=== PATIENT | female | born 1985 | race Caucasian/White ===

== ENCOUNTER 2017-06-25 19:56 | Emergency (ER) | payer OTHER ==
[2017-06-25] MEDS ORDERED: METHYLPREDNISOLONE INJ 125 MG/2 ML SDV IM ONE (21:10)
--- NOTE | 2017-06-25 21:12 | ER Document Report ---
ED Skin Rash/Insect Bite/Abscs - General Chief Complaint: Insect Bite Stated Complaint: POSSIBLE SPIDER BITE,SWELLING Time Seen by Provider: 06/25/17 21:04 Mode of Arrival: Ambulatory Information source: Patient Notes: Patient is a 31-year-old female who presents to the ER today for possible insect bite to her right forearm at 2 PM today. Patient states that after the bite she did not see anything but a little while later she saw a small black spider sitting wherever she was. She denies any numbness, tingling except for her "carpal tunnel." She states that there is some redness and that it is tender to touch around the area of the insect bite. She denies any fever, chills, drainage from the area, headache or other symptoms. TRAVEL OUTSIDE OF THE [place] IN LAST 30 DAYS: No - Related Data Allergies/Adverse Reactions: No Known Allergies Allergy (Verified 06/25/17 20:21) Past Medical History - General Information source: Patient - Social History Smoking Status: Unknown if Ever Smoked Family History: Reviewed & Not Pertinent Patient has suicidal ideation: No Patient has homicidal ideation: No - Past Medical History Cardiac Medical History: Denies: Hx Coronary Artery Disease, Hx Heart Attack, Hx Hypertension Pulmonary Medical History: Denies: Hx Asthma, Hx Bronchitis, Hx COPD, Hx Pneumonia Neurological Medical History: Reports: Hx Migraine. Denies: Hx Cerebrovascular Accident, Hx Seizures Renal/ Medical History: Denies: Hx Peritoneal Dialysis Malignancy Medical History: Reports: Hx Cervical Cancer Musculoskeltal Medical History: Denies Hx Arthritis Past Surgical History: Reports: Hx Gastric Bypass Surgery - Lap band, Hx Gynecologic Surgery - leep procedure, Hx Orthopedic Surgery - cyst from left wrist, Hx Tonsillectomy - Immunizations Immunizations up to date: Yes Hx Diphtheria, Pertussis, Tetanus Vaccination: Yes Review of Systems - Review of Systems Constitutional: No symptoms reported EENT: No symptoms reported Cardiovascular: No symptoms reported Respiratory: No symptoms reported Gastrointestinal: No symptoms reported Genitourinary: No symptoms reported Female Genitourinary: No symptoms reported Musculoskeletal: No symptoms reported Skin: See HPI Hematologic/Lymphatic: No symptoms reported Neurological/Psychological: No symptoms reported Physical Exam - Vital signs Vitals: Temp Pulse Resp BP Pulse Ox 98 F 91 18 125/91 H 98 06/25/17 20:22 06/25/17 20:22 06/25/17 20:22 06/25/17 20:22 06/25/17 20:22 - Notes Notes: PHYSICAL EXAMINATION: GENERAL: Well-appearing and in no acute distress. HEAD: Atraumatic, normocephalic. EYES: Pupils equal round and reactive to light, extraocular movements intact, sclera anicteric, conjunctiva are normal. NECK: Normal range of motion, supple without lymphadenopathy LUNGS: CTAB and equal. No wheezes rales or rhonchi. HEART: Regular rate and rhythm without murmurs EXTREMITIES: Normal range of motion, no pitting edema. No cyanosis. NEUROLOGICAL: Cranial nerves grossly intact. Normal sensory/motor exams. PSYCH: Normal mood, normal affect. SKIN: Warm, Dry, normal turgor, small papule to the right volar forearm with mild erythema around, tender to palpation Course - Re-evaluation Re-evalutation: 06/25/17 21:21 Patient given Solu-Medrol injection here and sent home with Keflex for prophylactic treatment. - Vital Signs Vital signs: Temp Pulse Resp BP Pulse Ox 98 F 91 18 125/91 H 98 06/25/17 20:22 06/25/17 20:22 06/25/17 20:22 06/25/17 20:22 06/25/17 20:22 Discharge - Discharge Clinical Impression: Insect bite Qualifiers: Encounter type: initial encounter Qualified Code(s): W57.XXXA - Bitten or stung by nonvenomous insect and other nonvenomous arthropods, initial encounter Condition: Stable Disposition: HOME, SELF-CARE Additional Instructions: Return immediately for any new or worsening symptoms. Follow up with primary care provider, call tomorrow to make followup appointment. Prescriptions: Cephalexin Monohydrate [Keflex 500 mg Capsule] 500 mg PO BID 5 Days capsule
[2017-06-25 21:39] VITALS: BP 104/73
== END 2017-06-25 21:40 | disposition home or self-care (01) ==
LOC: ER 19:56
DX: S50.861A Insect bite (nonvenomous) of right forearm, initial encounter (principal); W57.XXXA Bitten or stung by nonvenomous insect and other nonvenomous arthropods, initial encounter; Z85.41 Personal history of malignant neoplasm of cervix uteri; Z98.84 Bariatric surgery status
CPT/HCPCS: 99281; 96374; J2930

== ENCOUNTER 2017-06-27 10:44 | Day surgery (SDC) | payer OTHER ==
--- NOTE | 2017-06-23 11:11 | RADIOLOGY REPORT (SQ) ---
EXAM DESCRIPTION: CHEST PA/LATERAL COMPLETED DATE/TIME: 06/23/2017 10:55 am REASON FOR STUDY: PRE-OP COMPARISON: 03/21/2013 EXAM PARAMETERS: NUMBER OF VIEWS: two views TECHNIQUE: Digital Frontal and Lateral radiographic views of the chest acquired. RADIATION DOSE: NA LIMITATIONS: none FINDINGS: LUNGS AND PLEURA: No opacities, masses or pneumothorax. No pleural effusion. MEDIASTINUM AND HILAR STRUCTURES: No masses or contour abnormalities. HEART AND VASCULAR STRUCTURES: Heart normal size. No evidence for failure. BONES: No acute findings. HARDWARE: None in the chest. OTHER: No other significant finding. IMPRESSION: NO SIGNIFICANT RADIOGRAPHIC FINDING IN THE CHEST. TECHNICAL DOCUMENTATION: JOB ID: [id number] [employer]- All Rights Reserved
[2017-06-23 11:20] LABS: ABSOLUTE EOSINOPHILS # (AUTO) 0.2 10^3/uL (0.0-0.6); ABSOLUTE LYMPHOCYTES (AUTO) 3.1 10^3/uL (0.5-4.7); ABSOLUTE MONOCYTES (AUTO) 0.6 10^3/uL (0.1-1.4); ABSOLUTE NEUT (AUTO) 2.7 10^3/uL (1.7-8.2); BASOPHILS % (AUTO) 0.3 % (0-2); EOSINOPHILS % (AUTO) 3.6 % (0-6); HEMATOCRIT 43.4 % (36.0-47.0); HEMOGLOBIN 14.1 g/dL (12.0-15.5); HGB HCT DIFFERENCE -1.1; LYMPHOCYTES % (AUTO) 46.7 % (13-45); MEAN CORPUSCULAR HEMOGLOBIN 29.3 pg (27.0-33.4); MEAN CORPUSCULAR HGB CONC 32.4 g/dL (32.0-36.0); MEAN CORPUSCULAR VOLUME 90 fl (80-97); MONOCYTES % (AUTO) 9.6 % (3-13); RED CELL DISTRIBUTION WIDTH 14.4 % (11.5-14.0); SEGMENTED NEUTROPHILS % (AUTO) 39.8 % (42-78); WHITE BLOOD COUNT 6.7 10^3/uL (4.0-10.5)
[2017-06-23 11:39] LABS: AMORPHOUS SEDIMENT,URINE TRACE /HPF; APPEARANCE,URINE CLOUDY; BILIRUBIN,URINE NEGATIVE (NEGATIVE); GLUCOSE, URINE NEGATIVE (NEGATIVE); KETONES,URINE NEGATIVE (NEGATIVE); LEUKOCYTE ESTERASE,URINE NEGATIVE (NEGATIVE); NITRITE,URINE NEGATIVE (NEGATIVE); PROTEIN,URINE NEGATIVE (NEGATIVE); URINE SPECIFIC GRAVITY 1.021; UROBILINOGEN,URINE NEGATIVE mg/dL (<2.0)
[2017-06-23 11:50] LABS: ANION GAP 10 (5-19); BLOOD UREA NITROGEN 16 mg/dL (7-20); CALCIUM 9.8 mg/dL (8.4-10.2); CARBON DIOXIDE 26 mmol/L (22-30); CHLORIDE 105 mmol/L (98-107); CREATININE RESULT 0.63 mg/dL (0.52-1.25); GLUCOSE 75 mg/dL (75-110); POTASSIUM 4.8 mmol/L (3.6-5.0); SODIUM 140.9 mmol/L (137-145)
--- NOTE | 2017-06-23 13:13 | EKG REPORT ---
SEVERITY:- NORMAL ECG - SINUS RHYTHM : Confirmed by: Garrick Clark MD 23-Jun-2017 13:12:37
[~2017-06-27 10:44] MED LIST: CEFAZOLIN 2 GM/D5W RTU 2 GM/50 ML RTUPB IV PRN; LACTATED RINGERS 1000 ML IV PRN; LIDOCAINE 0.5% INJ-PF (5 MG/ML) 50 ML SDV SUBCUT PRN; LIDOCAINE 2% INJ-PF (20 MG/ML) 10 ML AMPUL ONE; ONDANSETRON HCL INJ/PF 4 MG/2 ML SDV ONE
[2017-06-27] MEDS ORDERED: LIDOCAINE 1% INJ-PF (10 MG/ML) 30 ML SDV ONE (12:12)
[2017-06-27] MEDS ORDERED: BUPIVACAINE HCL 0.5 % INJ/PF 30 ML SDV ONE (12:12)
[2017-06-27] MEDS ORDERED: FENTANYL CITRATE INJ/PF 100 MCG/2 ML AMPUL ONE (13:39)
[2017-06-27] MEDS ORDERED: LIDOCAINE 2% INJ-PF (20 MG/ML) 10 ML AMPUL ONE (13:39)
[2017-06-27] MEDS ORDERED: MIDAZOLAM 2 MG/2 ML INJ ONE (13:39)
[2017-06-27] MEDS ORDERED: ACETAMINOPHEN 100 ML IV ONE (13:40)
[2017-06-27] MEDS ORDERED: PROPOFOL INJ 200 MG/20 ML VIAL IV ONE (13:40)
[2017-06-27] MEDS ORDERED: DIPHENHYDRAMINE HCL 50 MG/ML VIAL IV PRN (14:24)
[2017-06-27] MEDS ORDERED: FENTANYL CITRATE INJ/PF 100 MCG/2 ML AMPUL IV PRN ×3 (14:24)
[2017-06-27] MEDS ORDERED: HYDROCODONE/ACETAMINOPHEN 5-325 MG TABLET PO PRN (14:41)
[2017-06-27] MEDS ORDERED: ONDANSETRON HCL INJ/PF 4 MG/2 ML SDV IV PRN (14:41)
--- NOTE | 2017-06-27 14:41 | Operative Report ---
Operative Report PREOPERATIVE DIAGNOSIS: Right Carpal Tunnel Syndrome POSTOPERATIVE DIAGNOSIS: Right Carpal Tunnel Syndrome OPERATION: Endoscopic Right Carpal Tunnel Release SURGEON: NURA MCMAHAN ANESTHESIA: LMAC COMPLICATIONS: None ESTIMATED BLOOD LOSS: Minimal PROCEDURE: Indication for above procedure: 31-year-old female with complaints of numbness and tingling in her right hand with nocturnal awakening. Patient followed up at my office which point we discussed patient's diagnosis and treatment options including operative versus nonoperative intervention. After discussing risks and benefits of both operative and nonoperative treatment the joint decision was made to proceed with operative intervention. Procedure In Detail: Patient was seen and evaluated in the preoperative holding area. The RIGHT upper extremity was initialized and marked. Patient received Ancef IV for bacterial prophylaxis. Patient was taken back to the operative room where transferred operative table. Patient was then placed under MAC anesthesia. Once adequately anesthetized, a nonsterile tourniquet was placed on the upper extremity. A surgical team debriefing was performed ensuring all instrumentation was available, the surgical procedure was discussed with possible concerns reviewed. Skin was prepped with alcohol a 50:50 10 mL mixture of 1% lidocaine and 0.5% Marcaine plain was injected locally and w/in carpal canal. The upper extremity was prepped with chlorhexidine and alcohol and draped in a sterile fashion. A timeout was done identifying correct patient, procedure and extremity everyone in attendance agree with this and verbalized no concerns.The extremity was then exsanguinated the tourniquet was inflated to 250 mmHg. A transverse skin incision was made just proximal to the wrist flexion crease ulnar to the palmaris longus. Blunt dissection was performed down to the palmaris longus tendon which was retracted radially. Deep to the palmaris longus tendon was the volar carpal ligament this was incised identifying the median nerve deep. With the use of a Edwards elevator any soft tissue/synovium was freed from the undersurface of the transverse carpal ligament. The hook of hamate was identified ulnarly. The ConMed cannulas were then introduced beginning with #1 progressing to a #3 gently dilating the carpal canal. I then introduced the scope within the cannula and identified transverse carpal ligament ensuring the median nerve was not visualized within the cannula. I triangulated distally with a 25-gauge needle identifying the distal aspect of the transverse carpal ligament, to ensure protection of the superficial palmar arch. The arthroscopic knife was used to incise the transverse carpal ligament under direct visualization with the arthroscopic camera. Any excess transverse fibers that remained after the first past were carefully released with a repeat pass. The median nerve was then directly visualized radially without disruption. Once this was completed I placed the #3 dilator and assured I got complete release of the transverse carpal ligament without residual compression. The median nerve was directly visualized and free of any overlying compression. I then turned my attention to release of the volar antebrachial fascia proximally. Once again a Edwards was used to open the wound and I proceeded with cannula #1 to #3. The arthroscope was introduced into the cannula and under direct visualization the volar antebrachial fascia was released. Once this was complete I copiusly irrigated the wound with normal saline. The skin incision was closed with 4-0 Monocryl subcutaneous and a running subcuticular 4-0 Monocryl. This was reinforced with Dermabond and Steri -Strips. Sterile, 4 x 4's and a Kaden bandage was placed loosely. Sponge counts , instrument counts and needle counts were correct. The was no intraoperative complications patient tolerated the procedure well and was stable to PACU.
--- NOTE | 2017-06-27 14:43 | PDOC DISCHARGE SUMMARY ---
Discharge Summary (SDC) - Discharge Final Diagnosis: Right Carpal Tunnel Syndrome Date of Surgery: 06/27/17 Discharge Date: 06/27/17 Condition: Good Treatment or Instructions: Schedule Follow Up w/ Dr. Raghavendra Cho @ [facility] to be seen in 10-14 days or as scheduled [place]: Dorothy: Craig: May remove dressing on postop day #3, keep incision covered and dry. Ice and elevate May begin finger range of motion attempting to make full fist. Stool softener of choice when on pain medication. Prescriptions: Hydrocodone/Acetaminophen [[place] 5-325 Tablet] 1 - 2 tab PO ASDIR PRN #15 tab PRN Reason: Referrals: SHELDON FAGAN MD [Primary Care Provider] - Discharge Diet: As Tolerated Respiratory Treatments at Home: Deep Breathing/Coughing Report the Following to Your Physician Immediately: Fever over 101 Degrees, Unusual Bleeding, Redness, Swelling, Warmth, Increased Soreness, Numbness, Tingling Sensation
[2017-06-27 17:26] VITALS: BP 106/68
== END 2017-06-27 17:10 | disposition home or self-care (01) ==
LOC: OROUT 10:44
PROVIDERS: ATTEND Orthopaedic Surgery
PROC: 01N54ZZ Release Median Nerve, Percutaneous Endoscopic Approach (ICD-10-PCS; principal; 2017-06-27 12:45)
DX: G56.01 Carpal tunnel syndrome, right upper limb (principal); K21.9 Gastro-esophageal reflux disease without esophagitis; E66.9 Obesity, unspecified; Z79.899 Other long term (current) drug therapy; Z87.891 Personal history of nicotine dependence; Z85.41 Personal history of malignant neoplasm of cervix uteri; Z68.34 Body mass index [BMI] 34.0-34.9, adult
CPT/HCPCS: 93005; 36415; 85025; 81025; 80048; 81001; 71020; 93010; 29848; J2250; J3010; J3490 ×2; J2405; J2704; J0690; J0131

== ENCOUNTER 2017-10-08 14:31 | Emergency (ER) | payer OTHER ==
[2017-10-08] MEDS ORDERED: PROCHLORPERAZINE EDISYLATE INJ 10 MG/2 ML VIAL IV ONE (15:05)
[2017-10-08] MEDS ORDERED: NORMAL SALINE 1000 ML 1,000 ML IV ONE (15:05)
[2017-10-08] MEDS ORDERED: DIPHENHYDRAMINE HCL 50 MG/ML VIAL IV ONE (15:05)
[2017-10-08] MEDS ORDERED: KETOROLAC TROMETHAMINE INJ/PF 30 MG/1 ML SDV IV ONE (15:05)
--- NOTE | 2017-10-08 15:11 | ER Document Report ---
ED GI/ - General Chief Complaint: Flu Symptoms Stated Complaint: FEVERS Time Seen by Provider: 10/08/17 14:48 Mode of Arrival: Ambulatory Information source: Patient Notes: 32-year-old female presents to ED for cough and cold symptoms since yesterday. Last night she started with nausea vomiting and left upper abdominal pain. She states she also has pain in her back at the same area. She states the pain started soon as she started vomiting. She has a history of a gastric sleeve a year ago. She denies any hemoptysis. Patient started as clear and is now yellow. TRAVEL OUTSIDE OF THE [place] IN LAST 30 DAYS: No - HPI Patient complains to provider of: Abdominal pain - Left upper quadrant, Vomiting , Other - Cough and cold symptoms Onset: Other - Cold symptoms started yesterday abdominal pain and vomiting started during the night Timing/Duration: Intermittent Quality of pain: Sharp Severity at maximum: Severe Severity in ED: Severe Pain Level: 5 Location: LUQ Vaginal bleeding (Compared to normal period): None LMP: 2 weeks ago Associated symptoms: Fever, Nausea, Vomiting, Other - Cough and cold symptoms. denies: Blood in emesis Exacerbated by: Other - Vomiting Relieved by: Denies Similar symptoms previously: Yes Recently seen / treated by doctor: No - Related Data Allergies/Adverse Reactions: No Known Allergies Allergy (Verified 10/08/17 14:38) Past Medical History - General Information source: Patient - Social History Smoking Status: Current Every Day Smoker Cigarette use (# per day): Yes - Half pack per day Chew tobacco use (# tins/day): No Smoking Education Provided: Yes - 3 minutes Frequency of alcohol use: Occasional Drug Abuse: None Lives with: Family Family History: Reviewed & Not Pertinent Patient has suicidal ideation: No Patient has homicidal ideation: No - Past Medical History Cardiac Medical History: Reports: None Pulmonary Medical History: Reports: None EENT Medical History: Reports: None Neurological Medical History: Reports: Hx Migraine Endocrine Medical History: Reports: None Renal/ Medical History: Reports: None Malignancy Medical History: Reports: Hx Cervical Cancer GI Medical History: Reports: None Musculoskeltal Medical History: Reports None Skin Medical History: Reports None Psychiatric Medical History: Reports: None Traumatic Medical History: Reports: None Infectious Medical History: Reports: None Past Surgical History: Reports: Hx Gastric Bypass Surgery - Lap band, Hx Gynecologic Surgery - leep procedure, Hx Orthopedic Surgery - cyst from left wrist, Hx Tonsillectomy - Immunizations Immunizations up to date: Yes Hx Diphtheria, Pertussis, Tetanus Vaccination: Yes Review of Systems - Review of Systems Constitutional: Recent illness EENT: Nose discharge, Sinus discharge Cardiovascular: No symptoms reported Respiratory: Cough Gastrointestinal: Abdominal pain, Nausea, Vomiting Genitourinary: No symptoms reported Female Genitourinary: No symptoms reported Musculoskeletal: No symptoms reported Skin: No symptoms reported Hematologic/Lymphatic: No symptoms reported Neurological/Psychological: No symptoms reported -: Yes All other systems reviewed and negative Physical Exam - Vital signs Vitals: Temp Pulse Resp BP Pulse Ox 99.6 F 110 H 18 125/69 98 10/08/17 14:39 10/08/17 14:39 10/08/17 14:39 10/08/17 14:39 10/08/17 14:39 Interpretation: Normal - General General appearance: Appears well, Alert - HEENT Head: Normocephalic, Atraumatic Eyes: Normal Pupils: PERRL Ears: Normal External canal: Normal Tympanic membrane: Normal Sinus: Normal Nasal: Purulent discharge, Swelling Mouth/Lips: Normal Mucous membranes: Normal Pharynx: Post nasal drainage Neck: Normal - Respiratory Respiratory status: No respiratory distress Chest status: Nontender Breath sounds: Normal Chest palpation: Normal - Cardiovascular Rhythm: Regular Heart sounds: Normal auscultation Murmur: No - Abdominal Inspection: Normal Distension: No distension Bowel sounds: Normal Tenderness: Tender - luq Organomegaly: No organomegaly. No: Hepatomegaly, Splenomegaly, Mass - Back Back: Normal, Nontender - Extremities General upper extremity: Normal inspection, Nontender, Normal color, Normal ROM , Normal temperature General lower extremity: Normal inspection, Nontender, Normal color, Normal ROM , Normal temperature, Normal weight bearing. No: Clarisa's sign - Neurological Neuro grossly intact: Yes Cognition: Normal Orientation: AAOx4 Fam Coma Scale Eye Opening: Spontaneous Fam Coma Scale Verbal: Oriented Fam Coma Scale Motor: Obeys Commands Fam Coma Scale Total: 15 Speech: Normal Motor strength normal: LUE, RUE, LLE, RLE Sensory: Normal - Psychological Associated symptoms: Normal affect, Normal mood - Skin Skin Temperature: Warm Skin Moisture: Dry Skin Color: Normal Course - Re-evaluation Re-evalutation: 10/08/17 17:16 Patient was treated with Compazine Toradol Benadryl and IV fluids. Patient states she is feeling much better and is ready to go home. Patient instructed to follow-up with primary doctor and given a prescription for Compazine for nausea and vomiting at home. - Vital Signs Vital signs: Temp Pulse Resp BP Pulse Ox 99.5 F 90 16 116/70 97 10/08/17 17:44 10/08/17 17:44 10/08/17 17:44 10/08/17 17:44 10/08/17 17:44 - Laboratory Result Diagrams: 10/08/17 15:25 10/08/17 15:25 Laboratory results interpreted by me: 10/08/17 15:25 RDW 14.2 H Seg Neuts % (Manual) 93 H Band Neutrophils % 2 L Lymphocytes % (Manual) 1 L Abs Lymphs (Manual) 0.2 L Discharge - Discharge Clinical Impression: URI (upper respiratory infection) Qualifiers: URI type: unspecified URI Qualified Code(s): J06.9 - Acute upper respiratory infection, unspecified Nausea and vomiting Qualifiers: Vomiting type: unspecified Vomiting Intractability: non-intractable Qualified Code(s): R11.2 - Nausea with vomiting, unspecified Headache Qualifiers: Headache type: unspecified Headache chronicity pattern: unspecified pattern Intractability: not intractable Qualified Code(s): R51 - Headache Condition: Stable Disposition: HOME, SELF-CARE Instructions: Family Physicians / Practices Additional Instructions: UPPER RESPIRATORY ILLNESS: You have a viral infection of the respiratory passages -- a "cold." This common infection causes nasal congestion, drainage, and often sore throat and cough. It is highly contagious. The disease usually lasts about 10 to 14 days. There is no "cure" for the viral infection -- it must run its course. If there is a complication, such as bacterial infection in the nose, sinuses, middle ear, or bronchial tubes, antibiotics may be required. The antibiotics won't affect the virus. Drink plenty of fluids. A humidifier may help. An expectorant medication or decongestant may make you more comfortable. Use acetaminophen or ibuprofen for fever or aches. See the doctor if fever persists over two days, if there is any significant worsening of your symptoms, or if you simply fail to improve as expected. HEADACHE: The physician does not feel that the headache you are experiencing has a serious underlying cause. Most headaches are due to emotional stress, with resultant muscle tension (tension headache). Occasionally, headaches are secondary to changes in the blood vessels of the scalp (vascular headache and migraine headache). Sometimes, a headache is the first symptom of another developing illness, such as a viral infection. You have no evidence of stroke, bleeding, meningitis, or other serious cause of your headache. The treatment of headaches varies with the severity and cause of the pain. Not all headaches need pain shots. In fact, there is evidence that using narcotics for headaches may make them worse in the long run. The physician will determine the therapy that's in your best interest. If you develop a fever, if the headache is different from any you've previously experienced, or if the headache progressively worsens, then call your physician at once or go to the emergency room. Nausea or Vomiting, Nonspecific Vomiting (or nausea without vomiting) can be caused by many different problems. Of course, it can mean that something's wrong with the stomach, such as "stomach flu," ulcers, or inflammation. But it can also be a symptom of a problem that has nothing to do with the stomach or intestines. Vomiting is common with severe headaches, earaches, and tonsillitis. We see it with pneumonia or heart attacks. Drugs can cause nausea. Many abdominal problems cause vomiting; for example, gallstones, kidney stones, pancreatitis, and intestinal obstruction (blocked bowels). In most cases, curing the vomiting depends on fixing the problem that caused it. For temporary relief, we may use an anti-nausea medicine. For home use, we can prescribe suppositories, chewable pills, pills that dissolve in the mouth, or liquid anti-nausea drugs. If the vomiting seems to be caused by a problem in the stomach, acid-suppressing drugs may be prescribed as well. It's important to avoid dehydration. Sip clear liquids. Take increasing amounts of fluid over the first 24 hours. Then start small amounts of bland foods (such as dry toast, applesauce, mashed potato). Avoid aspirin, tobacco, and alcohol. Gradually resume your usual diet. If the vomiting worsens, if the problem that's making you vomit worsens, or if there's evidence of bleeding in the stomach (such as black, tarry stool, bloody or black vomit, or lightheadedness), you should return immediately. Call your doctor if you aren't improved in 24 to 36 hours. Abdominal Pain There are many causes of abdominal pain. Pain can mean a serious problem requiring surgery (such as appendicitis). It can also be an innocent problem that goes away on its own (such as a viral infection). Often, time must pass to determine the cause of pain. The physician does not feel that hospitalization is necessary, at present. Things may change within the next 24 hours. Call the doctor or come back for re- examination if any problems occur, such as: (1) Pain that becomes more severe, steady, or becomes concentrated in one specific area. Also, pain that is more severe with movement or coughing. (2) Vomiting that persists or becomes more frequent. (3) Blood in the vomitus, urine, or bowel movements. Blood in the stool may have a tarry or black appearance. (4) Shaking chills or fever greater than 100 degrees F. (5) The abdomen becomes more distended or swollen. (6) Bowel movements cease. (7) Failure to improve as expected. USE OF DIPHENHYDRAMINE: Diphenhydramine (Benadryl) is an antihistamine and has been recommended to help treat your headache and to prevent side effects of other medications used to treat headaches. The medication can be repeated four times daily. Age Elixir (12.5 mg/tsp) 25 mg pill adult 1-2 tabs Antihistamines may cause drowsiness, especially with the first dose. Do not operate machinery or drive while under the effects of the medication. Do not combine the medication with alcohol, or with any other medication without talking to your doctor. ANTINAUSEA MEDICATION: You have been given a medication to suppress nausea and vomiting. This type of medication can be given as a shot, pill, or suppository. It will usually last for many hours. Pills and shots usually last six to eight hours, suppositories last about 12 hours. For the typical illness, only one or two doses of the medication may be necessary. Mild lightheadedness may occur. This type of medicine can cause drowsiness. Do not drive or operate dangerous machinery while under its influence. Do not mix with alcohol. See your doctor at once if you have muscle spasms or tightness, or uncontrollable motions (particularly of the neck, mouth, or jaw). Persistent vomiting or severe lightheadedness should also be evaluated by the physician. INTRAVENOUS COMPAZINE FOR HEADACHE: You have received therapy for headaches, using intravenous Compazine. This treatment is dramatically successful in relieving the headache in about 50 percent of cases. When it works, it provides a rapid method of eliminating the headache without resorting to narcotics (and the problems associated with them). Most patients still feel fully alert after the Compazine, but others may be slightly drowsy. It's best not to drive or work with machinery for six to eight hours. Do not take alcohol or other medication unless you discuss it with the doctor. If you develop tightness and spasms in your muscles, especially the neck and tongue, you should return. This is a side effect which can be treated. TORADOL INJECTION: You have been given an injection of ketorolac tromethamine (Toradol). This is an excellent, safe drug for pain control. It also has potent antiinflammatory action. You should have significant pain relief within about one hour. Toradol is not addicting and is non-sedating. It does not interfere with driving or work. Call or return if you develop itching, hives, shortness of breath, or rash. SMOKING: If you smoke, you should stop smoking. The tar and chemicals in cigarette smoke are harmful. Smoking has been shown to cause: emphysema chronic bronchitis lung cancer mouth and throat cancer stomach and pancreas cancer premature aging defects In addition, smoking increases ear and lung infections in children of smokers. FOLLOW-UP CARE: If you have been referred to a physician for follow-up care, call the physician s office for an appointment as you were instructed or within the next two days. If you experience worsening or a significant change in your symptoms, notify the physician immediately or return to the Emergency Department at any time for re-evaluation. Prescriptions: Prochlorperazine Maleate [Compazine 10 mg Tablet] 10 mg PO Q6HP PRN #10 tablet PRN Reason: Forms: Smoking Cessation Education, Return to Work
[2017-10-08 15:41] LABS: HEMATOCRIT 41.8 % (36.0-47.0); HGB HCT DIFFERENCE 0.2; MEAN CORPUSCULAR HEMOGLOBIN 29.1 pg (27.0-33.4); MEAN CORPUSCULAR HGB CONC 33.4 g/dL (32.0-36.0); MEAN CORPUSCULAR VOLUME 87 fl (80-97); RED BLOOD COUNT 4.81 10^6/uL (3.72-5.28); RED CELL DISTRIBUTION WIDTH 14.2 % (11.5-14.0); WHITE BLOOD COUNT 8.6 10^3/uL (4.0-10.5)
[2017-10-08 15:54] LABS: ALANINE AMINOTRANSFERASE 28 U/L (9-52); ALBUMIN 4.2 g/dL (3.5-5.0); ALKALINE PHOSPHATASE 65 U/L (38-126); ANION GAP 10 (5-19); ASPARTATE AMINO TRANSFERASE 21 U/L (14-36); BILIRUBIN,DIRECT 0.2 mg/dL (0.0-0.4); BILIRUBIN,TOTAL 0.5 mg/dL (0.2-1.3); BLOOD UREA NITROGEN 12 mg/dL (7-20); CALCIUM 9.9 mg/dL (8.4-10.2); CARBON DIOXIDE 26 mmol/L (22-30); CHLORIDE 104 mmol/L (98-107); GLUCOSE 88 mg/dL (75-110); POTASSIUM 3.8 mmol/L (3.6-5.0); SODIUM 140.4 mmol/L (137-145); TOTAL PROTEIN 6.7 g/dL (6.3-8.2)
[2017-10-08 16:00] LABS: BAND NEUTROPHILS % (MANUAL) 2 % (3-5); BASOPHILS % (MANUAL) 0 % (0-2); EOSINOPHILS % (MANUAL) 0 % (0-6); HYPOCHROMASIA SLIGHT; LYMPHOCYTES % (MANUAL) 1 % (13-45); TOTAL CELLS COUNTED 100
[2017-10-08 17:49] VITALS: BP 116/70
== END 2017-10-08 17:50 | disposition home or self-care (01) ==
LOC: ER 14:31
DX: J06.9 Acute upper respiratory infection, unspecified (principal); R11.2 Nausea with vomiting, unspecified; R51 Headache; R50.9 Fever, unspecified; R05 Cough; R10.12 Left upper quadrant pain; M54.9 Dorsalgia, unspecified; Z98.84 Bariatric surgery status; F17.210 Nicotine dependence, cigarettes, uncomplicated
CPT/HCPCS: 99283; 96361; 96374; 96375; 36415; 84703; 85025; 80053; J1200; J1885; J0780; J7030

== ENCOUNTER 2018-02-26 09:34 | Emergency (ER) | payer SELFPAY ==
--- NOTE | 2018-02-26 10:29 | ER Document Report ---
ED Medical Screen (RME) - General Chief Complaint: Insect Bite Stated Complaint: POSSIBLE BUG BITE Time Seen by Provider: 02/26/18 10:03 Mode of Arrival: Ambulatory Information source: Patient Notes: 32-year-old female presents to ED for complaint of tick bite to her back. She states she was out in the [place] 9 days ago noticed a tick on Monday had a tick removed the area is now red and inflamed she now has joint pain and stiffness with fatigue progressing every day since Monday. I have greeted and performed a rapid initial assessment of this patient. A comprehensive ED assessment and evaluation of the patient, analysis of test results and completion of medical decision making process will be conducted by an additional ED providers. TRAVEL OUTSIDE OF THE [place] IN LAST 30 DAYS: No - Related Data Allergies/Adverse Reactions: No Known Allergies Allergy (Verified 02/26/18 09:35) Past Medical History Neurological Medical History: Reports: Hx Migraine Renal/ Medical History: Denies: Hx Peritoneal Dialysis Malignancy Medical History: Reports: Hx Cervical Cancer Musculoskeltal Medical History: Denies Hx Arthritis Past Surgical History: Reports: Hx Gastric Bypass Surgery - Lap band, Hx Gynecologic Surgery - leep procedure, Hx Orthopedic Surgery - cyst from left wrist, Hx Tonsillectomy - Immunizations Immunizations up to date: Yes Hx Diphtheria, Pertussis, Tetanus Vaccination: Yes Physical Exam - Vital signs Vitals: Temp Pulse Resp BP Pulse Ox 97.9 F 73 18 111/69 97 02/26/18 09:46 02/26/18 09:46 02/26/18 09:46 02/26/18 09:46 02/26/18 09:46 Course - Vital Signs Vital signs: Temp Pulse Resp BP Pulse Ox 97.9 F 73 18 111/69 97 02/26/18 09:46 02/26/18 09:46 02/26/18 09:46 02/26/18 09:46 02/26/18 09:46 Doctor's Discharge - Discharge Referrals: SHELDON FAGAN MD [Primary Care Provider] - Follow up as needed
--- NOTE | 2018-02-26 10:34 | ER Document Report ---
ED Skin Rash/Insect Bite/Abscs - General Chief Complaint: Insect Bite Stated Complaint: POSSIBLE BUG BITE Time Seen by Provider: 02/26/18 10:03 Mode of Arrival: Ambulatory Notes: Patient is a 32 year old female who presents emergent primary with a chief complaint of insect bite on the posterior aspect of the right shoulder blade. Patient states that she is out working [employer] Monday and noticed a tick on the back of her right shoulder on Monday states that her removed it got all of the insect. States that there is been redness but denies a target lesion around insect bite. States that she has been sore in along the right trapezius but denies any focal joint tenderness. She denies any fevers or chills, dizziness or headaches. TRAVEL OUTSIDE OF THE [place] IN LAST 30 DAYS: No - Related Data Allergies/Adverse Reactions: No Known Allergies Allergy (Verified 02/26/18 09:35) Past Medical History - General Information source: Patient - Social History Smoking Status: Never Smoker Family History: Reviewed & Not Pertinent Neurological Medical History: Reports: Hx Migraine Renal/ Medical History: Denies: Hx Peritoneal Dialysis Malignancy Medical History: Reports: Hx Cervical Cancer Musculoskeltal Medical History: Denies Hx Arthritis Past Surgical History: Reports: Hx Gastric Bypass Surgery - Lap band, Hx Gynecologic Surgery - leep procedure, Hx Orthopedic Surgery - cyst from left wrist, Hx Tonsillectomy - Immunizations Immunizations up to date: Yes Hx Diphtheria, Pertussis, Tetanus Vaccination: Yes Review of Systems - Review of Systems Constitutional: No symptoms reported Cardiovascular: No symptoms reported Respiratory: No symptoms reported Gastrointestinal: No symptoms reported Musculoskeletal: See HPI Skin: See HPI Neurological/Psychological: No symptoms reported -: Yes All other systems reviewed and negative Physical Exam - Vital signs Vitals: Temp Pulse Resp BP Pulse Ox 97.9 F 73 18 111/69 97 02/26/18 09:46 02/26/18 09:46 02/26/18 09:46 02/26/18 09:46 02/26/18 09:46 - Notes Notes: PHYSICAL EXAM GENERAL: Alert, interacts well. HEAD: Normocephalic, atraumatic. EYES: Pupils equal, round, and reactive to light. Extraocular movements intact. ENT: Oral mucosa moist, tongue midline. NECK: Full range of motion. Supple. Trachea midline. LUNGS: Clear to auscultation bilaterally, no wheezes, rales, or rhonchi. No respiratory distress. HEART: Regular rate and rhythm. No murmurs, gallops, or rubs. ABDOMEN: Soft, nondistended, nontender. No guarding, rebound, or rigidity.. Bowel sounds present in all 4 quadrants. EXTREMITIES: Pain reproduced palpation of tenderness of the right trapezius however there is no joint tenderness, pain with range of motion of upper extremity joints of bilateral upper extremities. Moves all 4 extremities spontaneously. No edema, radial and dorsalis pedis pulses 2/4 bilaterally. No cyanosis. NEUROLOGICAL: Alert and oriented x4. Normal speech. PSYCH: Normal affect, normal mood. SKIN: Warm, dry, normal turgor. Insect bite on the posterior aspect of the right scapula with approximately 4 cm diameter surrounding erythema without evidence of target lesion. Course - Re-evaluation Re-evalutation: 02/26/18 20:14 Patient is a 32-year-old female who presents emergency department the chief complaint of insect bite. Blood work was sent given the concerns for Lyme disease by triage provider. Patient is not presenting with any neurological, cardiac deficits, arthralgia, dermatologic complaints. No symptoms consistent with [place] spotted fever. At this time will treat with doxycycline and encouraged to follow-up with primary care in 1 week. Otherwise patient given strict return precautions - Vital Signs Vital signs: Temp Pulse Resp BP Pulse Ox 97.3 F 64 18 105/62 98 02/26/18 12:36 02/26/18 12:36 02/26/18 09:46 02/26/18 13:29 02/26/18 12:36 - Laboratory Result Diagrams: 02/26/18 10:35 02/26/18 10:35 Laboratory results interpreted by me: 02/26/18 10:35 RDW 14.7 H Discharge - Discharge Clinical Impression: Tick bite Condition: Good Disposition: HOME, SELF-CARE Instructions: Doxycycline (OM), Tick Bites (OM) Prescriptions: Doxycycline Hyclate 100 mg PO BID #28 capsule Referrals: SHELDON FAGAN MD [Primary Care Provider] - Follow up in 1 week
[2018-02-26 11:02] LABS: ABSOLUTE EOSINOPHILS # (AUTO) 0.1 10^3/uL (0.0-0.6); ABSOLUTE LYMPHOCYTES (AUTO) 2.8 10^3/uL (0.5-4.7); ABSOLUTE MONOCYTES (AUTO) 0.6 10^3/uL (0.1-1.4); ABSOLUTE NEUT (AUTO) 3.8 10^3/uL (1.7-8.2); BASOPHILS % (AUTO) 0.2 % (0-2); EOSINOPHILS % (AUTO) 1.9 % (0-6); HEMATOCRIT 41.4 % (36.0-47.0); HEMOGLOBIN 13.9 g/dL (12.0-15.5); LYMPHOCYTES % (AUTO) 37.5 % (13-45); MEAN CORPUSCULAR HEMOGLOBIN 29.4 pg (27.0-33.4); MEAN CORPUSCULAR HGB CONC 33.5 g/dL (32.0-36.0); MEAN CORPUSCULAR VOLUME 88 fl (80-97); MONOCYTES % (AUTO) 8.7 % (3-13); PLATELET COUNT 263 10^3/uL (150-450); RED BLOOD COUNT 4.71 10^6/uL (3.72-5.28); RED CELL DISTRIBUTION WIDTH 14.7 % (11.5-14.0); SEGMENTED NEUTROPHILS % (AUTO) 51.7 % (42-78); TOTAL CELLS COUNTED % (AUTO) 100 %; WHITE BLOOD COUNT 7.3 10^3/uL (4.0-10.5)
[2018-02-26 11:03] LABS: APPEARANCE,URINE CLEAR; BILIRUBIN,URINE NEGATIVE (NEGATIVE); COLOR,URINE STRAW; GLUCOSE, URINE NEGATIVE (NEGATIVE); KETONES,URINE NEGATIVE (NEGATIVE); LEUKOCYTE ESTERASE,URINE NEGATIVE (NEGATIVE); NITRITE,URINE NEGATIVE (NEGATIVE); PROTEIN,URINE NEGATIVE (NEGATIVE); URINE SPECIFIC GRAVITY 1.013; UROBILINOGEN,URINE NEGATIVE mg/dL (<2.0)
[2018-02-26] MEDS ORDERED: DOXYCYCLINE HYCLATE 100 MG TABLET PO ONE (11:10)
[2018-02-26 11:24] LABS: ALANINE AMINOTRANSFERASE 29 U/L (9-52); ALKALINE PHOSPHATASE 56 U/L (38-126); ANION GAP 9 (5-19); ASPARTATE AMINO TRANSFERASE 22 U/L (14-36); BILIRUBIN,DIRECT 0.2 mg/dL (0.0-0.4); BILIRUBIN,TOTAL 0.3 mg/dL (0.2-1.3); BLOOD UREA NITROGEN 18 mg/dL (7-20); CALCIUM 9.5 mg/dL (8.4-10.2); CARBON DIOXIDE 27 mmol/L (22-30); CHLORIDE 106 mmol/L (98-107); GLUCOSE 83 mg/dL (75-110); POTASSIUM 4.3 mmol/L (3.6-5.0); TOTAL PROTEIN 6.8 g/dL (6.3-8.2)
[2018-02-26 13:31] VITALS: BP 105/62
[2018-02-28 07:05] LABS: LYME DISEASE IGM AB <0.80 index (0.00-0.79)
== END 2018-02-26 13:29 | disposition home or self-care (01) ==
LOC: ER 09:34
DX: S40.261A Insect bite (nonvenomous) of right shoulder, initial encounter (principal); W57.XXXA Bitten or stung by nonvenomous insect and other nonvenomous arthropods, initial encounter; Z85.41 Personal history of malignant neoplasm of cervix uteri
CPT/HCPCS: 36415; 80053; 81001; 81025; 85025; 86617; 86618; 99282

== ENCOUNTER 2018-04-01 22:00 | Emergency (ER) | payer SELFPAY ==
[2018-04-01 22:19] VITALS: BP 119/70
[2018-04-01] MEDS ORDERED: PREDNISONE 20 MG TABLET PO ONE (22:50)
[2018-04-01] MEDS ORDERED: METHOCARBAMOL 500 MG TABLET PO ONE (22:50)
[2018-04-01] MEDS ORDERED: HYDROMORPHONE HCL INJ/PF 2 MG/ML AMPULE IV ONE (22:50)
--- NOTE | 2018-04-01 22:58 | ER Document Report ---
ED Neck/Back Problem - General Chief Complaint: Neck Pain >24hrs old Stated Complaint: NECK PAIN, NO INJURY Time Seen by Provider: 04/01/18 22:31 Mode of Arrival: Ambulatory Information source: Patient Notes: Patient is a 32-year-old female who presents to the ER today for neck pain. Patient states that she has chronic neck pain and sees her orthopedic doctor, Dr. Aqunio for this over the past couple of years. 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 She states that she tried to call Dr. Aquino's office today but that he of course was not open as today is Monday. Patient denies any numbness or tingling but admits that over the past 3 days her neck has felt "stuck." She states that is progressively worsening and she can no longer turn her neck from side to side. TRAVEL OUTSIDE OF THE [place] IN LAST 30 DAYS: No - Related Data Allergies/Adverse Reactions: No Known Allergies Allergy (Verified 02/26/18 09:35) Past Medical History - General Information source: Patient - Social History Smoking Status: Unknown if Ever Smoked Family History: Reviewed & Not Pertinent Patient has suicidal ideation: No Patient has homicidal ideation: No Neurological Medical History: Reports: Hx Migraine Renal/ Medical History: Denies: Hx Peritoneal Dialysis Malignancy Medical History: Reports: Hx Cervical Cancer Musculoskeltal Medical History: Reports Hx Arthritis Past Surgical History: Reports: Hx Gastric Bypass Surgery - Lap band, Hx Gynecologic Surgery - leep procedure, Hx Orthopedic Surgery - cyst from left wrist, Hx Tonsillectomy - Immunizations Immunizations up to date: Yes Hx Diphtheria, Pertussis, Tetanus Vaccination: Yes Review of Systems - Review of Systems Constitutional: No symptoms reported EENT: No symptoms reported Cardiovascular: No symptoms reported Respiratory: No symptoms reported Gastrointestinal: No symptoms reported Genitourinary: No symptoms reported Female Genitourinary: No symptoms reported Musculoskeletal: See HPI Skin: No symptoms reported Hematologic/Lymphatic: No symptoms reported Neurological/Psychological: No symptoms reported Physical Exam - Vital signs Vitals: Temp Pulse Resp BP Pulse Ox 98.7 F 68 20 119/70 97 04/01/18 22:18 04/01/18 22:18 04/01/18 22:18 04/01/18 22:18 04/01/18 22:18 - Notes Notes: PHYSICAL EXAMINATION: GENERAL: Uncomfortable appearing, but in no acute distress. HEAD: Atraumatic, normocephalic. EYES: Pupils equal round and reactive to light, extraocular movements intact, sclera anicteric, conjunctiva are normal. NECK: Very limited normal range of motion of the neck with rotation to the right and left, flexion and extension, all with pain, without lymphadenopathy LUNGS: CTAB and equal. No wheezes rales or rhonchi. HEART: Regular rate and rhythm without murmurs BACK: no vertebral tenderness, normal ROM GI/: no CVA tenderness EXTREMITIES: Normal range of motion, no pitting edema. No cyanosis. NEUROLOGICAL: Cranial nerves grossly intact. Normal sensory/motor exams. PSYCH: Normal mood, normal affect. SKIN: Warm, Dry, normal turgor, no rashes or lesions noted Course - Re-evaluation Re-evalutation: 04/01/18 23:05 I see no reason for radiology today as this is patient's acute flare of chronic pain that she has had before. Patient states that she will call Dr. Aquino's office first thing tomorrow to make an appointment for probable steroid injection into the neck. - Vital Signs Vital signs: Temp Pulse Resp BP Pulse Ox 98.7 F 68 20 119/70 97 04/01/18 22:18 04/01/18 22:18 04/01/18 22:18 04/01/18 22:18 04/01/18 22:18 Discharge - Discharge Clinical Impression: Neck pain Condition: Stable Disposition: HOME, SELF-CARE Additional Instructions: Return immediately for any new or worsening symptoms. Follow up with primary care provider, call tomorrow to make followup appointment. Please call Dr. Aquino in the morning. Prescriptions: Diazepam [Valium 5 mg Tablet] 5 mg PO QIDP PRN #15 tablet PRN Reason: Methocarbamol [Robaxin 500 mg Tablet] 1,000 mg PO BID PRN #40 tablet PRN Reason: Referrals: SHELDON FAGAN MD [Primary Care Provider] - Follow up as needed
[2018-04-01] MEDS ORDERED: HYDROMORPHONE HCL INJ/PF 2 MG/ML AMPULE IM ONE (23:00)
== END 2018-04-01 23:09 | disposition home or self-care (01) ==
LOC: ER 22:00
DX: M54.2 Cervicalgia (principal); Z85.41 Personal history of malignant neoplasm of cervix uteri; Z98.84 Bariatric surgery status
CPT/HCPCS: 99283; 96372; J1170; J7512

== ENCOUNTER 2020-05-04 17:40 | Emergency (ER) | payer BC ==
[2020-05-04 17:49] VITALS: BP 121/78
--- NOTE | 2020-05-04 18:40 | ER Document Report ---
ED Extremity Problem, Lower - General Chief Complaint: Toe Injury Stated Complaint: RIGHT TOE PAIN/STEPPED ON NEEDLE Time Seen by Provider: 05/04/20 18:08 Primary Care Provider: TIMMY ESCOBAR DPM [ACTIVE STAFF] - Follow up as needed NURA MCMAHAN DO [ACTIVE STAFF] - Follow up as needed Mode of Arrival: Ambulatory Information source: Patient Notes: Patient is a 34-year-old female comes emergency room stating that she has been sent here by a local banquet food server for a foreign body in her right ball of her foot. Patient states that approximately 4 months ago she went to another facility where she told him what it happened they x-rayed her foot and said there was nothing there. When she got the report and the pictures that they only x-rayed her heel and not the ball of the foot. She did however receive a tetanus shot on that visit. Patient has had increasing discomfort and pain. She denies any fever. There is been no redness or signs of infection in the right lower extremity but the pain is gotten a little bit more unbearable. The banquet food server after evaluating and having the x-rays told her she needed to come to ER where it can be surgically removed. That is why patient is here today. TRAVEL OUTSIDE OF THE [place] IN LAST 30 DAYS: No - HPI Patient complains to provider of: Altered sensation, Pain Location: Foot Occurred: Other - 4 months ago Where: Home Onset/Duration: Sudden, Gradual, Persistent Quality of pain: Sharp, Stabbing Severity: Moderate Pain Level: 3 Context: Barefoot Recent injury: Yes Exacerbated by: Movement, Walking - Related Data Allergies/Adverse Reactions: No Known Allergies Allergy (Verified 05/04/20 18:06) Home Medications: denies Past Medical History - General Information source: Patient - I know you are I told the unimpressed - Social History Smoking Status: Former Smoker Chew tobacco use (# tins/day): No Smoking Education Provided: No Frequency of alcohol use: Social Drug Abuse: None Family History: Reviewed & Not Pertinent Patient has homicidal ideation: No Neurological Medical History: Reports: Hx Migraine Renal/ Medical History: Denies: Hx Peritoneal Dialysis Malignancy Medical History: Reports: Hx Cervical Cancer Musculoskeletal Medical History: Reports Hx Arthritis Past Surgical History: Reports: Hx Abdominal Surgery - lap band, gastric sleeve, Hx Gastric Bypass Surgery - Lap band, Hx Gynecologic Surgery - leep procedure, Hx Orthopedic Surgery - cyst from left wrist, Rt carpal tunnel, Hx Tonsillectomy - Immunizations Immunizations up to date: Yes Hx Diphtheria, Pertussis, Tetanus Vaccination: Yes Review of Systems - Review of Systems Constitutional: No symptoms reported EENT: No symptoms reported Cardiovascular: No symptoms reported Respiratory: No symptoms reported Gastrointestinal: No symptoms reported Genitourinary: No symptoms reported Female Genitourinary: No symptoms reported Musculoskeletal: See HPI Skin: No symptoms reported Hematologic/Lymphatic: No symptoms reported Neurological/Psychological: No symptoms reported -: Yes All other systems reviewed and negative Physical Exam - Vital signs Vitals: Temp Pulse Resp BP Pulse Ox 97.9 F 86 19 121/78 98 05/04/20 17:46 05/04/20 17:46 05/04/20 17:46 05/04/20 17:46 05/04/20 17:46 Interpretation: Normal - Notes Notes: PHYSICAL EXAMINATION: GENERAL: Well-appearing, well-nourished and in no acute distress. HEAD: Atraumatic, normocephalic. LUNGS: Breath sounds clear to auscultation bilaterally and equal. No wheezes rales or rhonchi. HEART: Regular rate and rhythm without murmurs Musculoskeletal: Normal range of motion, no pitting or edema. No cyanosis. PSYCH: Normal mood, normal affect. SKIN: Examination patient's her concern is her right foot at the ball months probably near the second digit. There is no sign at this time of any infection patient has full range of motion of her toes. She also has good cap refill in the nailbeds of the toes of the right foot. She has some mild tenderness to palpation on the ball of the foot at that second digit. Course - Vital Signs Vital signs: Temp Pulse Resp BP Pulse Ox 97.9 F 86 19 121/78 98 05/04/20 17:46 05/04/20 17:46 05/04/20 17:46 05/04/20 17:46 05/04/20 17:46 Discharge - Discharge Clinical Impression: Foot pain Qualifiers: Laterality: right Qualified Code(s): M79.671 - Pain in right foot Foreign body in right foot Qualifiers: Encounter type: initial encounter Qualified Code(s): S90.851A - Superficial foreign body, right foot, initial encounter Condition: Stable Disposition: HOME, SELF-CARE Instructions: Foreign Body ([facility]) Additional Instructions: As we discussed this needle is been in your foot for several months. There is no sign of infection at this time. This is not what we consider an emergent type of a presentation. The something we do not go exploring to find and you will need surgical intervention to get this out. Given that information you should follow-up with an orthopedic doctor. Sometimes interventional radiology will do a fluoroscopy procedure to go in and get that needle out. Since you have contact with a orthopedic surgeon Dr. Mcmahan highly recommend you contact his office to see what they recommend. At this point as I stated there is no erythema no redness no warmth I do not believe it is infected since it is been there for months already. You have full flexion and extension of your toes therefore at this time I feel safe to let you go home and follow-up with your orthopedist of your choice to have it removed. However should you spike a fever or you have any other concerns or cannot get into see orthopedist in a relatively fair amount of time you can return to ER for reevaluation. Referrals: TIMMY ESCOBAR DPM [ACTIVE STAFF] - Follow up as needed NURA MCMAHAN DO [ACTIVE STAFF] - Follow up as needed
== END 2020-05-04 18:43 | disposition home or self-care (01) ==
LOC: ER 17:40
DX: S90.851A Superficial foreign body, right foot, initial encounter (principal); M79.671 Pain in right foot; W27.3XXA Contact with needle (sewing), initial encounter; Y92.009 Unspecified place in unspecified non-institutional (private) residence as the place of occurrence of the external cause; Z87.891 Personal history of nicotine dependence; Z98.84 Bariatric surgery status
CPT/HCPCS: 99283

== ENCOUNTER → 2020-05-04 | Outpatient (CLI) | payer BC ==
--- NOTE | 2020-05-04 14:43 | RADIOLOGY REPORT (SQ) ---
EXAM DESCRIPTION: FOOT RIGHT COMPLETE IMAGES COMPLETED DATE/TIME: 05/04/2020 1:56 pm REASON FOR STUDY: SUPERFICIAL FOREIGN BODY, RIGHT FOOT, INITIAL ENCOUNTER S90.851A SUPERFICIAL FORE IGN BODY, RIGHT FOOT, INITIAL ENCOU R93.6 ABNORMAL FINDINGS ON DIAGNOSTIC IMAGING OF LIMBS COMPARISON: None. NUMBER OF VIEWS: Three views. TECHNIQUE: AP, lateral and oblique radiographic images acquired of the right foot. LIMITATIONS: None. FINDINGS: MINERALIZATION: Normal. BONES: No acute fracture or dislocation. No worrisome bone lesions. JOINTS: No effusions. SOFT TISSUES: Linear radiopaque foreign body with a small loop whole noted overlying the proximal pha lanx of the 1st digit. This may represent a sewing needle. It measures just over 1 cm in length. OTHER: No other significant finding. IMPRESSION: Radiopaque foreign body as described overlying the ventral aspect of the proximal 1st ph alanx. TECHNICAL DOCUMENTATION: JOB ID: [id number] 2010 [employer]- All Rights Reserved Reading location - IP/workstation name: [email or web address]
== END ==
LOC: OD 13:45
PROVIDERS: ATTEND Podiatrist Foot & Ankle Surgery
DX: S90.851A Superficial foreign body, right foot, initial encounter (principal); R93.6 Abnormal findings on diagnostic imaging of limbs; X58.XXXA Exposure to other specified factors, initial encounter